=== PATIENT | male | born 1935 | race Caucasian/White ===

== ENCOUNTER 2017-04-17 08:38 | Day surgery (SDC) | payer OTHER, MEDICARE ==
[2017-04-17 09:02] VITALS: BMI 26.6
[2017-04-17 10:37] VITALS: TEMP 97.4
[2017-04-17 11:01] VITALS: PULSE 65
[2017-04-17 11:39] VITALS: BP 130/73
--- NOTE | 2017-04-21 12:38 | PATH ---
Surgical Pathology Report Patient Name: KODY REIS [facility]. Rec. #: [id number] /Age/Gender: 1935 (Age: 81) / M Account: [id number] Location: U-ENDOSCOPY Taken: 04/17/2017 Received: 04/17/2017 Reported: 04/21/2017 Physicians: Marcus Macdonald M.D. Specimen(s) Received A: BX CECAL POLYP B: BX DESCENDING COLON POLYP Clinical History History of polyps, diverticulosis Diverticulosis, colon polyps Final Diagnosis A. COLON, CECUM, POLYP, BIOPSY: POLYPOID FRAGMENT OF COLONIC MUCOSA WITH FOCAL SURFACE HYPERPLASTIC CHANGE B. COLON, DESCENDING, POLYP, BIOPSY: TUBULAR ADENOMA. ADDITIONAL FRAGMENT OF COLONIC MUCOSA WITH SURFACE HYPERPLASTIC CHANGE. Electronically Signed Pablo Miles M.D. Gross Description A. Received in formalin, labeled "biopsy cecal polyp" is a nagy, irregular portion of soft tissue measuring 0.4 cm in greatest dimension. The specimen is submitted in toto in one cassette. B. Received in formalin, labeled "biopsy descending colon polyp" are 2 nagy, irregular portions of soft tissue measuring 0.2 and 0.8 cm in greatest dimension. The specimens are submitted in toto in one cassette. 04/17/201704/17/2017
== END 2017-04-17 11:20 | disposition home or self-care (01) ==
LOC: JASU-ENDO 08:38
PROVIDERS: ATTEND Internal Medicine Gastroenterology
PROC: 0DBM8ZX Excision of Descending Colon, Via Natural or Artificial Opening Endoscopic, Diagnostic (ICD-10-PCS; 2017-04-17)
PROC: 0DBH8ZX Excision of Cecum, Via Natural or Artificial Opening Endoscopic, Diagnostic (ICD-10-PCS; principal; 2017-04-17 09:30)
DX: Z12.11 Encounter for screening for malignant neoplasm of colon (principal); Z86.010 Personal history of colon polyps; K57.30 Diverticulosis of large intestine without perforation or abscess without bleeding; K64.8 Other hemorrhoids; D12.0 Benign neoplasm of cecum; D12.4 Benign neoplasm of descending colon
CPT/HCPCS: 88305-TC

== ENCOUNTER 2017-06-21 09:17 | Emergency (ER) | payer OTHER, MEDICARE ==
[2017-06-21 09:21] VITALS: BP 139/85; PULSE 70; TEMP 97.5; BMI 26.4
--- NOTE | 2017-06-21 09:42 | PDOC ---
History of Present Illness <Kervin Tabares - Last Filed: 06/21/17 10:13> - General History Source: Patient Exam Limitations: No Limitations - History of Present Illness Initial Comments: 06/21/17 10:21 The pt is 81 y/o male with a PMHx of HTN, arthritis, and hypercholesterolemia and PSHx of CABG in 2006 presenting to the ED with a rash for 3 days ago. He states it first appeared on the right arm and neck. He complains of itchiness to both his eyes after rubbing them with his hands. Patient states he was cleaning in the yard prior to the rash first appearing. He states he has had similar symptoms in the past when he was in contact with poison lelo. Patient denies fever, chills, nausea, vomiting, diarrhea. Patient is otherwise healthy and has no other complaints. <Shiraz Smith - Last Filed: 06/21/17 10:23> - General Chief Complaint: Poison [place],Poison Lelo Exposure Stated Complaint: ALLERGIC RXN Time Seen by Provider: 06/21/17 09:41 Past History - Past Medical History Cardiac Disorders: Yes ([place] 2006) GI Disorders: Yes (DIVERTICULOSIS; HEMORRHOIDS; COLON ADENOMA) Hypercholesterolemia: Yes - Surgical History Cardiac Surgery: Yes (3 VESSEL CABBAGE 2006) Orthopedic Surgery: Yes (TKR 2004) - Psycho/Social/Smoking Cessation Hx Anxiety: No Suicidal Ideation: No Smoking History: Never smoked Hx Alcohol Use: No Drug/Substance Use Hx: No Substance Use Type: None <Kervin Tabares - Last Filed: 06/21/17 10:13> <Shiraz Smith - Last Filed: 06/21/17 10:23> - Past Medical History Allergies/Adverse Reactions: Allergies Allergy/AdvReac Type Severity Reaction Status Date / Time No Known Allergies Allergy Verified 06/21/17 09:21 Home Medications: Ambulatory Orders Atorvastatin Ca [Lipitor] 20 mg PO HS 06/02/13 Dabigatran Etexilate Mesylate [Pradaxa] 150 mg PO BID 06/02/13 Metoprolol Tartrate [Lopressor -] 25 mg PO DAILY 06/02/13 Aspirin Coated [Ecotrin -] 81 mg PO DAILY 04/17/17 Multivit-Min/FA/Lycopen/Lutein [Centrum Silver Tablet] 1 each PO DAILY 04/17/17 Review of Systems - Review of Systems Able to Perform ROS?: Yes Comments:: 06/21/17 10:21 GENERAL/CONSTITUTIONAL: No fever or chills. No weakness. HEAD, EYES, EARS, NOSE AND THROAT: + itchiness to both eyes. No change in vision. No ear pain or discharge. No sore throat. CARDIOVASCULAR: No chest pain or shortness of breath. RESPIRATORY: No cough, wheezing, or hemoptysis. GASTROINTESTINAL: No nausea, vomiting, diarrhea or constipation. GENITOURINARY: No dysuria, frequency, or change in urination. MUSCULOSKELETAL: No joint or muscle swelling or pain. No neck or back pain. SKIN: + rash on right arm and right side of neck. NEUROLOGIC: No headache, vertigo, loss of consciousness, or change in strength/ sensation. ENDOCRINE: No increased thirst. No abnormal weight change. HEMATOLOGIC/LYMPHATIC: No anemia, easy bleeding, or history of blood clots. ALLERGIC/IMMUNOLOGIC: No hives or skin allergy. <Shiraz Smith - Last Filed: 06/21/17 10:23> *Physical Exam - Vital Signs Last Vital Signs Temp Pulse Resp BP Pulse Ox 97.5 F L 70 20 139/85 97 06/21/17 09:18 06/21/17 09:18 06/21/17 09:18 06/21/17 09:18 06/21/17 09:18 <Kervin Tabares - Last Filed: 06/21/17 10:13> - Vital Signs Last Vital Signs Temp Pulse Resp BP Pulse Ox 97.5 F L 70 20 139/85 97 06/21/17 09:18 06/21/17 09:18 06/21/17 09:18 06/21/17 09:18 06/21/17 09:18 - Physical Exam Comments: 06/21/17 10:22 GENERAL: Awake, alert, and fully oriented, in no acute distress HEAD: No signs of trauma EYES: PERRLA, EOMI, sclera anicteric, conjunctiva clear ENT: Auricles normal inspection, hearing grossly normal, nares patent, oropharynx clear without exudates. Moist mucosa NECK: Normal ROM, supple, no lymphadenopathy, JVD, or masses LUNGS: Breath sounds equal, clear to auscultation bilaterally. No wheezes, and no crackles HEART: Regular rate and rhythm, normal S1 and S2, no murmurs, rubs or gallops ABDOMEN: Soft, nontender, normoactive bowel sounds. No guarding, no rebound. No masses EXTREMITIES: Normal range of motion, no edema. No clubbing or cyanosis. No cords, erythema, or tenderness NEUROLOGICAL: Cranial nerves II through XII grossly intact. Normal speech, normal gait SKIN: Classic rhus. contact dermatitis to the arms and antecubital areas, on the neck and intertubular folds primarily on the right side, and around both eyes periorbital area. Globes are spared. <Shiraz Smith - Last Filed: 06/21/17 10:23> *DC/Admit/Observation/Transfer - Attestations Physician Attestion: 06/21/17 09:41 I, Dr. Kervin Tabares, attest that this document has been prepared under my direction and personally reviewed by me in its entirety. I further attest, that it accurately reflects all work, treatment, procedures and medical decision -making performed by me. <Kervin Tabares - Last Filed: 06/21/17 10:13> - Attestations Scribe Attestion: 06/21/17 10:22 Documentation prepared by Shiraz Smith, acting as director medical economics for Kervin Tabares MD/. <Shiraz Smith - Last Filed: 06/21/17 10:23> Diagnosis at time of Disposition: Allergic contact dermatitis due to Rhus wood - Discharge Dispostion Disposition: HOME Condition at time of disposition: Good - Referrals Referrals: Armaan De MD [Primary Care Provider] - Mikayla Pina MD [Staff Physician] - - Patient Instructions Printed Discharge Instructions: DI for Poison [place] Allergy Additional Instructions: Mr Olson- Sorry that this happened to you. Please stay out of the heat. Use cool compresses on your eyes. See the Ophthalomologist tomorrow. Return to us if any problems. Hopefully the rash will fade in a day or two. Best- Dr. Kervin Tabares
[2017-06-21] MEDS ORDERED: methylPREDNISolone ACET (DEPO) 80 MG/1 ML VIAL IM ONE (10:11)
[2017-06-21] MEDS ORDERED: methylPREDNISolone NA SUCC 40 MG/1 ML VIAL ONE (10:17)
== END 2017-06-21 10:29 | disposition home or self-care (01) ==
LOC: JER 09:17
DX: L23.7 Allergic contact dermatitis due to plants, except food (principal)
CPT/HCPCS: 99281-25

== ENCOUNTER 2019-05-27 07:50 | Emergency (ER) | payer OTHER, MEDICARE ==
[2019-05-27 08:07] VITALS: BMI 24.4
[2019-05-27] MEDS ORDERED: ACETAMINOPHEN 1000 MG/100 ML VIAL (NON FORMULARY) IVPB ONE (08:36)
--- NOTE | 2019-05-27 09:10 | PDOC ---
History of Present Illness - General Chief Complaint: Back Pain Stated Complaint: DIFFIULTY BREATHING Time Seen by Provider: 05/27/19 07:56 History Source: Patient, Family Exam Limitations: No Limitations - History of Present Illness Initial Comments: 05/27/19 08:53 Pt. is an 83y.o male with a hx of left knee replacement surgery (2005), quadruble bypass surgery and a.fib presents with 2 days of left hip pain. Pain began suddenly ,is worsened by walking and standing is relieved by rest and radiates down his left leg. He went to an urgent care facility on 05/26 where he was prescribed tylenol and a patch but experienced no relief. He had increased difficulty walking this morning which prompted this visit. He rates severity of pain as 5/10.He denies any recent trauma, falls, fever,night sweats , chills or numbness. Timing/Duration: other (2 days ago) Past History - Travel Traveled outside of the country in the last 30 days: No - Past Medical History Allergies/Adverse Reactions: Allergies Allergy/AdvReac Type Severity Reaction Status Date / Time No Known Allergies Allergy Verified 05/27/19 08:11 Home Medications: Ambulatory Orders Atorvastatin Ca [Lipitor] 20 mg PO HS 06/02/13 Dabigatran Etexilate Mesylate [Pradaxa] 150 mg PO BID 06/02/13 Metoprolol Tartrate [Lopressor -] 25 mg PO DAILY 06/02/13 Aspirin Coated [Ecotrin -] 81 mg PO DAILY 04/17/17 Multivit-Min/FA/Lycopen/Lutein [Centrum Silver Tablet] 1 each PO DAILY 04/17/17 Oxycodone HCl 5 mg PO TID PRN #12 tablet MDD 3 tabs 05/27/19 Oxycodone HCl 5 mg PO TID PRN #12 tablet MDD 3 tabs 05/27/19 Cardiac Disorders: Yes ([place] 2006) COPD: No Diabetes: No GI Disorders: Yes (DIVERTICULOSIS; HEMORRHOIDS; COLON ADENOMA) Hypercholesterolemia: Yes - Surgical History Cardiac Surgery: Yes (3 VESSEL CABG 2006) Orthopedic Surgery: Yes (TKR 2004) - Suicide/Smoking/Psychosocial Hx Smoking History: Unknown if ever smoked Have you smoked in the past 12 months: No Information on smoking cessation initiated: No Hx Alcohol Use: No Drug/Substance Use Hx: No Substance Use Type: None Patient Lives Alone: No Lives with/in: spouse/SO Review of Systems - Review of Systems Constitutional: No: Chills, Diaphoresis, Fever, Night Sweats Respiratory: No: Cough Cardiac (ROS): No: Chest Pain ABD/GI: No: Abdominal Distended, Vomiting : No: Dysuria Musculoskeletal: Yes: See HPI Integumentary: No: Bruising, Erythema Neurological: No: Numbness Endocrine: No: Excessive Sweating All Other Systems: Reviewed and Negative *Physical Exam - Vital Signs Last Vital Signs Temp Pulse Resp BP Pulse Ox 98 F 69 16 127/71 100 05/27/19 07:53 05/27/19 07:53 05/27/19 07:53 05/27/19 07:53 05/27/19 07:53 - Physical Exam General Appearance: Yes: Appropriately Dressed. No: Apparent Distress Respiratory/Chest: positive: Lungs Clear, Normal Breath Sounds. negative: Respiratory Distress Vascular Pulses: Dorsalis-Pedis (R): 2+, Doralis-Pedis (L): 2+ Musculoskeletal: positive: Other. negative: CVA Tenderness, CVA Tenderness (R) , Vertebral Tenderness Extremity: positive: Other (No erythema/tenderness on left hip.Increased pain with weight bearing. able to ambulate with some assistance.). negative: Coldness, Cyanosis, Erythema Integumentary: positive: Normal Color, Dry, Warm. negative: Erythema Neurologic: negative: Motor Strength 5/5 Heart Score/ECG Review - History History: Slightly suspicious - Age Age: >/= 65 - Risk Factors Risk Factors Heart Score: Yes Hx Hypercholesterolemia - Troponin Troponin: </= normal limit - ECG Intrepretation Rhythm: Irregularly Irregular Comment:: 05/28/19 12:28 not new onset afib - [place]: Normal - P and OR Prominent R with upright T in V1 (true posterior [place]): No Delta Wave(s) Present: No WPW: No - QRS Poor R Wave Progression: No Q Wave Present: No - ECG Impressions Normal ECG: No Non-specific ST Elevation: No Ischemic Changes: No Bradycardia: No Tachycardia: Afib w/controlled rate Torsades ramu Pointes: No WPW: No ED Treatment Course - LABORATORY CBC & Chemistry Diagram: 05/27/19 09:18 05/27/19 09:18 Medical Decision Making - Medical Decision Making 05/27/19 10:01 DDx: Sciatica vs bursitis vs arterial embolus vs infection Labs/Imaging/Tx in ED Pain control (acetaminophen) Arterial U/S CT pelvis w/o contrast: no suspicious findings Ortho recommendations: No subluxation or fractions on both Lumbar-sacral/pelvis- left hip xray.Discharge if pain under control and ambulation is possible. F/U with on Thursday05/27/19 12:29 05/27/19 13:16 05/28/19 12:35 *DC/Admit/Observation/Transfer Diagnosis at time of Disposition: Hip pain Qualifiers: Laterality: left Qualified Code(s): M25.552 - Pain in left hip - Discharge Dispostion Disposition: HOME Condition at time of disposition: Improved Decision to Admit order: No - Prescriptions Prescriptions: Oxycodone HCl 5 mg PO TID PRN #12 tablet MDD 3 tabs PRN Reason: Pain Oxycodone HCl 5 mg PO TID PRN #12 tablet MDD 3 tabs PRN Reason: Pain - Referrals Referrals: Armaan De MD [Primary Care Provider] - Sixto Sloan MD [Staff Physician] - - Patient Instructions Printed Discharge Instructions: DI for Hip Pain Additional Instructions: Please f/u with orthopedics for further evaluation of hip pain Make appt. with Dr. Sloan within a week Pain meds called to pharmarcy take as prescribed if you experience worsening pain, numbness,weakness in your legs or difficulty walking,standing or other concerning symptoms return to ED, otherwise follow up with PCP as soon as possible. - Post Discharge Activity
--- NOTE | 2019-05-27 09:15 | PDOC ---
Attending Attestation - Resident Resident Name: Gabi James - ED Attending Attestation I have performed the following: I have examined & evaluated the patient, The case was reviewed & discussed with the resident, I agree w/resident's findings & plan, Exceptions are as noted - HPI HPI: 05/27/19 09:11 83 M with h/o HTN, HLD, afib on eliquis, CABG, presenting to ED with 3 days of L hip pain. Pt states that he has pain in his L hip radiating down his leg that is worse with standing and weight bearing. Denies any trauma or falls. Denies any heavy lifting or exercise that may have triggered it. Pt denies F/C. Denies swelling to the leg. Denies any new numbness/weakness. Denies back pain. Denies abdominal pain. Denies CP/SOB. Pt has never had this pain before. He states he spoke with Dr. Sloan this morning who referred him to ED for evaluation. - Physicial Exam PE: 05/27/19 09:13 "GENERAL: Awake, alert, and fully oriented, in no acute distress. HEAD: No signs of trauma EYES: PERRLA, EOMI, sclera anicteric, conjunctiva clear ENT: Auricles normal inspection, hearing grossly normal, nares patent, oropharynx clear without exudates. Moist mucosa NECK: Nontender, no stepoffs, Normal ROM, supple, no lymphadenopathy, JVD, or masses LUNGS: Breath sounds equal, clear to auscultation bilaterally. No wheezes, and no crackles HEART: Regular rate and rhythm, normal S1 and S2, no murmurs, rubs or gallops ABDOMEN: Soft, nontender, normoactive bowel sounds. No guarding, no rebound. No masses EXTREMITIES: L hip tender to deep palpation, normal ROM, normal distal pulses bilaterally, normal sensation and strength, no edema. No clubbing or cyanosis. No cords, erythema NEUROLOGICAL: Cranial nerves II through XII intact. 5/5 strength and sensation in all extremities, Normal speech, normal gait, normal cerebellar function SKIN: Warm, Dry, normal turgor, no rashes or lesions noted. - Medical Decision Making 05/27/19 09:14 83 M with L hip pain, mild tenderness on exam. No leg swelling or calf pain to suggest DVT. Normal pulses and circulation in extremity, making acute embolus unlikely. Pt with no fevers to suggest septic arthritis. ROM is normal. No abdominal or back pain to suggest aortic catastrophe. Suspect bursitis vs sciatic nerve pain. - Labs - CT pelvis non-con - Arterial doppler - Pain control - Discuss with Dr. Sloan 05/27/19 14:17 CT and XRs unremarkable Pt evaluated by Ortho, case discussed with ROSIE Cochran, who recommends pain control and outpt f/u Pt given oxycodone 5mg with significant relief of pain. Pt now able to ambulate unassisted in ED. Pt is well appearing, with normal vitals. Clinically stable for DC at this time. I discussed the physical exam findings, ancillary test results and final diagnoses with the patient. I answered all of the patient's questions. The patient was satisfied with the care received and felt comfortable with the discharge plan and treatment plan. The patient agrees to follow up with the primary care physician within 24-72 hours.
[2019-05-27 09:38] LABS: BASO % 0.2 % (0-2.0); EOS % 0.7 % (0-4.5); HEMATOCRIT 41.9 % (35.4-49); HEMOGLOBIN 13.9 GM/dL (11.7-16.9); LYMPH % 21.1 % (8-40); MCH 38.1 pg (25.7-33.7); MCHC 33.3 g/dl (32.0-35.9); MEAN CELL VOLUME 114.5 fl (80-96); MEAN PLT VOLUME 8.2 fl (7.5-11.1); MONO % 11.4 % (3.8-10.2); NEUT % 66.6 % (42.8-82.8); PLATELET COUNT 172 K/MM3 (134-434); RBC 3.66 M/mm3 (4.00-5.60); RDW 14.2 % (11.9-15.9); WHITE BLOOD COUNT 5.9 K/mm3 (4.0-10.0)
[2019-05-27 09:51] LABS: INR 1.69 (0.83-1.09)
[2019-05-27] MEDS ORDERED: ACETAMINOPHEN INJECTION 100 ML IVPB ONE (10:34)
[2019-05-27 10:43] LABS: ALBUMIN 3.2 g/dl (3.4-5.0); ALK PHOS 116 U/L (45-117); ANION GAP 6 MMOL/L (8-16); BILIRUBIN,TOTAL 0.9 mg/dL (0.2-1); BLOOD UREA NITROGEN 21.2 mg/dL (7-18); CALCIUM 8.4 mg/dL (8.5-10.1); CHLORIDE 112 mmol/L (98-107); CO2 26 mmol/L (21-32); CREATININE 0.9 mg/dL (0.55-1.3); GLUCOSE,RANDOM 107 mg/dL (74-106); POTASSIUM 4.2 mmol/L (3.5-5.1); SGOT/AST 14 U/L (15-37); SGPT/ALT 18 U/L (13-61); SODIUM 143 mmol/L (136-145); TOT PROT 6.4 g/dl (6.4-8.2)
--- NOTE | 2019-05-27 11:18 | EKG ---
Test Reason : Blood Pressure : / mmHG Vent. Rate : 078 BPM Atrial Rate : 326 BPM P-R Int : 000 ms QRS Dur : 082 ms QT Int : 376 ms P-R-T Axes : 000 034 023 degrees QTc Int : 428 ms ATRIAL FIBRILLATION ABNORMAL ECG Confirmed by LUTHER ROBLES MD ([id number]) on 05/27/2019 11:17:44 AM Referred By: Confirmed By:LUTHER ROBLES MD
--- NOTE | 2019-05-27 11:52 | CON.ORTH ---
Consult Reason for Consultation:: LBP, LLE pain - Alcohol/Substance Use Hx Alcohol Use: No - Smoking History Smoking history: Unknown if ever smoked Have you smoked in the past 12 months: No Home Medications - Allergies Allergies/Adverse Reactions: Allergies Allergy/AdvReac Type Severity Reaction Status Date / Time No Known Allergies Allergy Verified 05/27/19 08:11 - Home Medications Home Medications: Ambulatory Orders Atorvastatin Ca [Lipitor] 20 mg PO HS 06/02/13 Dabigatran Etexilate Mesylate [Pradaxa] 150 mg PO BID 06/02/13 Metoprolol Tartrate [Lopressor -] 25 mg PO DAILY 06/02/13 Aspirin Coated [Ecotrin -] 81 mg PO DAILY 04/17/17 Multivit-Min/FA/Lycopen/Lutein [Centrum Silver Tablet] 1 each PO DAILY 04/17/17 Physical Exam for Ortho Vital Signs: Vital Signs Temperature 98 F 05/27/19 07:53 Pulse Rate 69 05/27/19 07:53 Respiratory Rate 16 05/27/19 07:53 Blood Pressure 127/71 05/27/19 07:53 O2 Sat by Pulse Oximetry (%) 100 05/27/19 07:53 Labs: CBC, BMP 05/27/19 09:18 05/27/19 09:18 INR, PTT INR 1.69 (0.83-1.09) H 05/27/19 09:18 - Lower Extremity Hip: Yes: Exam WNL, Left, Other (nvi) Other Findings/Remarks: LS spine- equal limb lengths,+ ttp Left LS spine, + SLR, nvi Imaging - Results Cat Scan: Image Reviewed Assessment/Plan 83 M with h/o HTN, HLD, afib on eliquis, CABG, presenting to ED with 3 days of L hip pain. Pt states that he has pain in his L hip radiating down his leg that is worse with standing and weight bearing. Denies any trauma or falls. Denies any heavy lifting or exercise that may have triggered it. Pt denies F/C. Denies swelling to the leg. Denies any new numbness/weakness.Denies abdominal pain. Denies CP/SOB. Duarte any bowel/bladder dysfunction. a/p - LS spine HNP vs Stenosis Xrays of LS spine and pelvis ordered pain control, muscle relaxers PT eval wbat will advise further after xrays d/w Dr. Sloan
[2019-05-27 12:47] LABS: ANISOCYTOSIS 1+; MACROCYTOSIS 1+; OVALOCYTE 1+; PLATELET ESTIMATE NORMAL; TEAR DROP CELLS 1+
[2019-05-27] MEDS ORDERED: oxyCODONE HCL 5 MG TABLET PO ONE (12:56)
[2019-05-27] MEDS ORDERED: oxyCODONE HCL 5 MG TABLET ONE (13:13)
[2019-05-27 14:59] VITALS: BP 150/88; PULSE 67; TEMP 97.5
== END 2019-05-27 15:07 | disposition home or self-care (01) ==
LOC: JER 07:50
PROC: 3E033NZ Introduction of Analgesics, Hypnotics, Sedatives into Peripheral Vein, Percutaneous Approach (ICD-10-PCS; principal; 2019-05-27)
DX: M25.552 Pain in left hip (principal); Z96.652 Presence of left artificial knee joint; I25.10 Atherosclerotic heart disease of native coronary artery without angina pectoris; I10 Essential (primary) hypertension; Z95.1 Presence of aortocoronary bypass graft; I48.91 Unspecified atrial fibrillation; Z79.01 Long term (current) use of anticoagulants; E78.00 Pure hypercholesterolemia, unspecified; Z87.19 Personal history of other diseases of the digestive system
CPT/HCPCS: 36415; 72100-TC-FY; 72192-TC; 73523-TC-FY; 80053; 82550; 84484; 85025; 85610; 85651; 85730; 86140; 93005; 93010; 93925-TC; 96374; 99283-25; J0131

== ENCOUNTER 2021-02-07 10:00 | Emergency (ER) | payer OTHER, MEDICARE ==
[2021-02-07 10:07] VITALS: BP 143/69; PULSE 77; TEMP 98.2; BMI 27.1
[2021-02-07 11:07] LABS: BASO % 0.6 % (0-2.0); EOS % 1.9 % (0-4.5); HEMATOCRIT 37.8 % (35.4-49); HEMOGLOBIN 12.4 GM/dL (11.7-16.9); LYMPH % 31.9 % (8-40); MCH 38.4 pg (25.7-33.7); MCHC 32.9 g/dl (32.0-35.9); MEAN CELL VOLUME 116.8 fl (80-96); MEAN PLT VOLUME 7.9 fl (7.5-11.1); MONO % 9.5 % (3.8-10.2); NEUT % 56.1 % (42.8-82.8); PLATELET COUNT 277 K/MM3 (134-434); RBC 3.24 M/mm3 (4.00-5.60); RDW 14.4 % (11.9-15.9); WHITE BLOOD COUNT 4.1 K/mm3 (4.0-10.0)
[2021-02-07 11:14] LABS: INR 1.49 (0.83-1.09); PROTHROMBIN TIME (PATIENT) 17.8 SEC (9.7-13.0)
[2021-02-07 11:17] LABS: ACTIVATED PTT 32.7 SECONDS (25.2-36.5)
[2021-02-07 11:26] LABS: CHLORIDE 108 mmol/L (98-107); POTASSIUM 4.6 mmol/L (3.5-5.1); SODIUM 141 mmol/L (136-145)
[2021-02-07 11:29] LABS: ALBUMIN 3.2 g/dl (3.4-5.0); ANION GAP 8 MMOL/L (8-16); BLOOD UREA NITROGEN 18.5 mg/dL (7-18); CO2 25 mmol/L (21-32); GLUCOSE,RANDOM 104 mg/dL (74-106)
[2021-02-07 11:32] LABS: CREATININE 0.9 mg/dL (0.55-1.3); SGOT/AST 15 U/L (15-37); SGPT/ALT 22 U/L (13-61)
[2021-02-07 11:33] LABS: BILIRUBIN,TOTAL 0.7 mg/dL (0.2-1)
[2021-02-07 11:34] LABS: TOT PROT 6.4 g/dl (6.4-8.2)
[2021-02-07 11:35] LABS: ALK PHOS 146 U/L (45-117)
[2021-02-07 13:03] LABS: URINE APPEARANCE CLEAR; URINE BILIRUBIN NEGATIVE (NEGATIVE); URINE COLOR YELLOW; URINE GLUCOSE (UA) NEGATIVE (NEGATIVE); URINE KETONE NEGATIVE (NEGATIVE)
[2021-02-07 13:04] LABS: EPI CELLS 4.3 /uL (0-25.1); HYALINE CASTS 0.25 /uL (0-3.1); PH,URINE 5.5 (5.0-8.0); URINE BACTERIA 24.7 /uL (0-1359); URINE LEUK ESTERASE 3+ (NEGATIVE); URINE NITRITE NEGATIVE (NEGATIVE); URINE PROTEIN TRACE (NEGATIVE); URINE RBC 3.4 /uL (0-23.9); URINE WBC 10.4 /uL (0-25.8)
[2021-02-07 13:34] LABS: ANISOCYTOSIS 1+; MACROCYTOSIS 0; PLATELET ESTIMATE NORMAL
== END 2021-02-07 14:04 | disposition left against medical advice (07) ==
LOC: JER 10:00
DX: R53.1 Weakness (principal)
CPT/HCPCS: 36415; 70450-TC; 71045-TC-FY; 72125-TC; 72170-TC-FY; 80053; 81003; 82550; 84484; 85025; 85610; 85730; 87086; 87804; 93005; 93010; 99285-25; C9803; U0003

== ENCOUNTER 2022-06-10 09:43 | Emergency (ER) | payer OTHER, MEDICARE ==
[2022-06-10 10:49] VITALS: TEMP 97.9; BMI 25.0
[2022-06-10 14:29] LABS: BASO % 0.4 % (0-2.0); EOS % 0.7 % (0-4.5); HEMATOCRIT 31.9 % (35.4-49); HEMOGLOBIN 10.4 GM/dL (11.7-16.9); LYMPH % 25.3 % (8-40); MCH 39.7 pg (25.7-33.7); MCHC 32.5 g/dl (32.0-35.9); MEAN CELL VOLUME 121.9 fl (80-96); MEAN PLT VOLUME 7.7 fl (7.5-11.1); MONO % 8.3 % (3.8-10.2); NEUT % 65.3 % (42.8-82.8); PLATELET COUNT 310 10^3/uL (134-434); RBC 2.61 M/mm3 (4.00-5.60); RDW 16.4 % (11.9-15.9); WHITE BLOOD COUNT 4.4 K/mm3 (4.0-10.0)
[2022-06-10 14:46] LABS: CALCIUM 9.2 mg/dL (8.5-10.1)
[2022-06-10 14:47] LABS: BLOOD UREA NITROGEN 19.5 mg/dL (7-18)
[2022-06-10 14:50] LABS: CREATININE 0.9 mg/dL (0.55-1.3)
[2022-06-10 14:51] LABS: BILIRUBIN,TOTAL 0.7 mg/dL (0.2-1); TOT PROT 6.5 g/dl (6.4-8.2)
[2022-06-10 15:04] LABS: ANISOCYTOSIS 2+; MACROCYTOSIS 2+
[2022-06-10 16:22] VITALS: BP 140/62; PULSE 72
== END 2022-06-10 16:23 | disposition home or self-care (01) ==
LOC: JER 09:43
DX: F03.90 Unspecified dementia, unspecified severity, without behavioral disturbance, psychotic disturbance, mood disturbance, and anxiety (principal); D53.1 Other megaloblastic anemias, not elsewhere classified; S09.90XA Unspecified injury of head, initial encounter; W01.0XXA Fall on same level from slipping, tripping and stumbling without subsequent striking against object, initial encounter
CPT/HCPCS: 36415; 70450-TC; 71045-TC-FY; 72125-TC; 80053; 85025; 93005; 93010; 99285-25